=== PATIENT | male | born 1990 ===

== ENCOUNTER 2018-07-30 14:02 | Outpatient (CLI) | payer SELFPAY | END 2018-07-30 14:03 | disposition home or self-care (01) | LOC: C.LAB 14:02 | DX: R07.9 Chest pain, unspecified (principal) ==

== ENCOUNTER 2018-10-04 08:32 | Outpatient (CLI) | payer OTHER | END 2018-10-04 08:33 | disposition home or self-care (01) | LOC: C.CARD 08:32 ==